=== PATIENT | male | born 1960 | race Caucasian/White ===

== ENCOUNTER 2021-02-18 00:55 | Emergency (ER) | payer OTHER ==
[~2021-02-18] VITALS: Ht 177.8 cm; Wt 127.0 kg
[2021-02-18] MEDS ORDERED: HYDROCODONE/ACETAMINOPHEN 10/325MG TABLET PO ONE (01:15)
[2021-02-18] MEDS ORDERED: KETOROLAC 60MG/2ML VIAL IM ONE (01:15)
[2021-02-18] MEDS ORDERED: GABAPENTIN 300MG CAPSULE PO SCH (02:00)
[2021-02-18 09:55] VITALS: BP 147/91
[2021-02-18] MEDS ORDERED: HYDROCODONE/ACETAMINOPHEN 5/325MG TABLET PO ONE (10:00)
== END 2021-02-18 10:06 | disposition home or self-care (01) ==
LOC: ER 00:55
DX: G89.29 Other chronic pain (principal); M79.605 Pain in left leg; G40.909 Epilepsy, unspecified, not intractable, without status epilepticus; I10 Essential (primary) hypertension; E11.9 Type 2 diabetes mellitus without complications; Z86.718 Personal history of other venous thrombosis and embolism; Z79.01 Long term (current) use of anticoagulants
CPT/HCPCS: 96372; 99284; J1885

== ENCOUNTER 2021-02-24 15:28 | Emergency (ER) | payer MEDICAID ==
[~2021-02-24] VITALS: Ht 175.3 cm; Wt 107.0 kg
[2021-02-24] MEDS: NITROGLYCERIN 0.4MG TABLET SL SL PRN (16:41)
[2021-02-24] MEDS: MORPHINE SULFATE 4 MG/ML CPJ (NOT FOR IM USE) IV ONE ×2 (16:46→20:22)
[2021-02-24 17:17] LABS: BASOPHILS % 0.9 % (0.0-2.0); EOSINOPHILS % 1.3 % (0.0-5.0); HEMATOCRIT. 29.6 % (42.0-52.0); HEMOGLOBIN. 9.6 g/dL (14.0-18.0); LYMPHOCYTES % 25.8 % (20.0-50.0); MEAN CORPUSCULAR HEMOGLOBIN 24.6 pg (28.0-32.0); MEAN CORPUSCULAR VOLUME 75.7 fL (80.0-94.0); MEAN PLATELET VOLUME 8.8 fl (7.4-10.4); MONOCYTES % 8.6 % (2.0-8.0); NEUTROPHILS % 63.4 % (40.0-76.0); PLATELET 312 x1000/uL (130-400); RED BLOOD CELL COUNT 3.92 mill/uL (4.7-6.1); RED CELL DISTRIBUTION WIDTH 20.3 % (11.6-14.6)
[2021-02-24 17:28] LABS: CHLORIDE 103 mEq/L (98-107)
[2021-02-24 17:34] LABS: ETHANOL BLOOD < 10 mg/dL
[2021-02-24] MEDS: ASPIRIN 81MG TABLET PO NR (17:51)
[2021-02-24] MEDS ORDERED: HEPARIN 25,000 UNITS PREMIX 250 ML IV PRN (19:00)
[2021-02-24 19:11] LABS: INR 1.1
[2021-02-24] MEDS: HEPARIN 5000 UNITS/ML VIAL IV SCH (20:29)
[2021-02-24 20:59] VITALS: BP 122/81
[2021-02-24] MEDS ORDERED: HEPARIN 5000 UNITS/ML VIAL IV PRN ×2 (23:00)
== END 2021-02-24 20:59 | disposition short-term general hospital (02) ==
LOC: ER 15:28
DX: I24.9 Acute ischemic heart disease, unspecified (principal); I10 Essential (primary) hypertension; I82.402 Acute embolism and thrombosis of unspecified deep veins of left lower extremity; D64.9 Anemia, unspecified; F14.10 Cocaine abuse, uncomplicated; E11.9 Type 2 diabetes mellitus without complications; Z98.890 Other specified postprocedural states; Z86.59 Personal history of other mental and behavioral disorders
CPT/HCPCS: 36415; 71045; 80053; 80320; 83690; 83880; 84484; 85025; 85610; 85730; 93005; 93970; 96374; 96375; 96376; 99285; J1644; J2270; Z7610; G0480